=== PATIENT | female | born 2000 | race Caucasian/White ===

== ENCOUNTER → 2023-05-03 14:26 | Outpatient (REF) | payer BC, SELFPAY ==
[2023-05-13 12:01] LABS: Chlamydia trachomatis,ThinPrep Negative (Negative); Neisseria gonorrhoeae,ThinPrep Negative (Negative); Specimen Source Cervical
== END ==
LOC: CLAB 14:26
PROVIDERS: ATTENDING PHYSICIAN Nurse Practitioner Adult Health
DX: Z01.419 Encounter for gynecological examination (general) (routine) without abnormal findings (principal); Z11.3 Encounter for screening for infections with a predominantly sexual mode of transmission
CPT/HCPCS: 87491; 87591; G0123

== ENCOUNTER 2025-01-30 19:38 | Emergency (ER) | payer OTHER, SELFPAY ==
[2025-01-30 19:48] VITALS: BP 159/86
[2025-01-30 20:07] LABS: Hematocrit 40.4 % (37.0-47.0); Hemoglobin 13.8 g/dL (12.0-16.0); Mean Corp Hgb Conc. 34.2 g/dL (33.0-37.0); Mean Corpuscular Volume 86.3 fL (81.0-99.0); Nucleated Red Blood Cells % 0 %; Platelet Count 331 10^3/uL (130-400); Red Cell Dist. Width 12.7 % (11.5-14.5)
[2025-01-30 20:23] LABS: APTT 25.3 Sec (23.4-35.0)
[2025-01-30 20:35] LABS: HCG, Serum Qualitative Screen Negative
[2025-01-30 20:38] LABS: ALT (SGPT) 26 U/L (0-35); AST (SGOT) 28 U/L (14-36); Albumin 5.3 g/dl (3.5-5.0); Alkaline Phosphatase 60 U/L (38-126); Blood Urea Nitrogen 6 mg/dl (7-17); Calcium 10.2 mg/dl (8.4-10.2); Carbon Dioxide 23 mmol/L (22-30); Chloride 102 mmol/L (98-107); Glucose 108 mg/dl (70-99); Potassium 3.8 mmol/L (3.5-5.1); Sodium 134 mmol/L (135-145); Total Protein 8.6 g/dl (6.3-8.2); eGFR > 60.00
[2025-01-30 20:45] LABS: Troponin I < 0.012 ng/ml
[2025-01-30 21:11] VITALS: BP 137/93
--- NOTE | 2025-01-30 21:34 | ED.GENMED ---
History of Present Illness
General
Chief Complaint: Chest Pain
Source: patient and spouse
Exam Limitations: none
Time Seen by Provider: 01/30/25 21:13
Nursing documentation reviewed up to this point in time: agreed with
History of Present Illness
History of Present Illness:
Patient presents to ED secondary to intermittent chest pain, along with left arm tingling sensation over the past 5 days. Patient was evaluated by primary care physician 3 days ago secondary to left arm tingling sensation and was told that her
symptoms may be secondary to recent change in activities, i.e. recently purchased house with a lot of physical labor. However, when intermittent chest pain started over the past 2 days, she became worried and went to urgent care center. After
evaluation at urgent care center, patient was referred to ED for evaluation with concern for potential KS versus blood clots, patient is also on control pills and does vape. Denies leg pain or swelling. Denies back pain. Denies recent
travel or surgery. Denies family history of early heart disease or blood clots. Patient states that she has been under heavy stress recently and not eating as well. Chest pain described as sharp, intermittent, lasting seconds, with spontaneous
resolution.
Review of Systems
Review of Systems
Allergies reviewed?: Yes
All Other Systems: ROS reviewed and negative except as documented in HPI and ROS
Constitutional: Reports no symptoms
EENT: Reports no symptoms
Respiratory: Reports no symptoms
Cardiac: Reports chest pain
ABD/GI: Reports no symptoms
Musculoskeletal: Reports no symptoms
Skin: Reports no symptoms
Neurological: Reports numbness
Phy Exam
Physical Exam
Physical Exam:
Physical Exam
General: no apparent distress, not acutely ill. afebrile
Head: nc/at. eomi
Neck: supple. no meningeal signs.
Heart: s1/s2 regular rhythm, no murmur. tachycardic
Lungs: no acute respiratory distress. clear bilaterally
Abdomen: normal bowel sounds. not tender.
Neuro: alert and oriented x 3. no focal neurological deficits
Skin: no rash
Psychiatric: well kept. interactive and cooperative
Extremities: no edema. no calf tenderness.
Scores
Heart Score for Chest Pain Patients
STEMI patient?: No
History: Slightly or Non-Suspicious
ECG: Normal
Age: </= 45 years
Risk Factors: No Risk Factors
Troponin: </= Normal Limit
Heart Score for Chest Pain Patients: 0
Heart Score Risk: 2.5% MACE over next 6 weeks
Course
Orders/Labs/Results
Orders:
Orders
01/30/25 19:39
EKG [Electrocardiogram (*1)] Urgent
Reason for Study: Chest Pain
EKG- Treatment ONCE
01/30/25 19:53
Test Result ONCE
01/30/25 19:59
Complete Blood Count/With Diff Urgent
Comprehensive Metabolic Panel Urgent
HCG, Serum Qualitative Screen Urgent
PTT Urgent
Troponin I Urgent
01/30/25 21:27
D-Dimer Urgent
Abnormal Lab Results
01/30/25
19:59
Neutrophils % 79.5 H %
(42.2-75.2)
Lymphocytes % 17.3 L %
(20.5-51.1)
Sodium 134 L mmol/L
(135-145)
BUN 6 L mg/dl
(7-17)
Glucose 108 H mg/dl
(70-99)
Total Protein 8.6 H g/dl
(6.3-8.2)
Albumin 5.3 H g/dl
(3.5-5.0)
01/30/25 19:59
01/30/25 19:59
Vital Signs
Initial and Last Documented VS:
Initial Vital Signs
Temp Pulse Resp BP Pulse Ox
97.7 F 121 18 159/86 98
01/30/25 19:48 01/30/25 19:48 01/30/25 19:48 01/30/25 19:48 01/30/25 19:48
Last Documented Vital Signs
Temp Pulse Resp BP Pulse Ox
97.7 F 90 28 123/92 97
01/30/25 19:48 01/30/25 22:00 01/30/25 22:00 01/30/25 22:00 01/30/25 22:00
MDM/Problems Addressed
MDM/Problems Addressed:
Patient with an unremarkable workup in ED, including EKG, blood work. Patient's heart rate fluctuating between 90s and 110, with incremental increase noted during conversation. Patient's presenting symptoms less likely ACS nor PE, but likely
secondary to recent increase in stress. As such, patient will be discharged home with recommendation to follow-up with PCP for reevaluation, including potential treatment for underlying anxiety versus wearing Holter monitor, if palpitations persist.
At patient's request, short course of Xanax will be provided, to be used as needed with caution. However, did inform the patient, it is best that she speak with her primary care physician about potentially starting maintenance medications and
outpatient.
*Pulse Oximetry
SaO2: 98
Oxygen Mode of Delivery: Room air
Patient hypoxic: no
*EKG
Interpreted by ED Provider?: Yes
EKG Intrepretation Date: 01/30/25
Heart Rate: 114
Rate: bradycardiac
Rhythm: sinus
[place]: normal axis
Interval: normal interval
*Critical Care Note
Total Time (30-74mins, 75-104mins- exclusive of procedures): Not Applicable
ED Attending Note
-
Portions of this chart may have been created with voice recognition software.� Occasional wrong word or��sound alike� substitutions may have occurred due to the inherent limitations of voice recognition software.
Discharge Plan
Departure
Patient Disposition: Home (Routine Discharge)
Date of Disposition: 01/30/25
Time of Disposition: 21:54
Patient with high blood pressure during this ER visit?: Yes
Condition: Good
Discharge Problem:
Chest pain
Instructions: Chest Pain PCP Follow Up
Prescriptions:
New
alprazolam [Xanax] 0.5 mg tablet
0.5 mg PO TID PRN (Reason: anxiety) Qty: 5 0RF
No Action
norethindrone-e.estradiol-iron [Blisovi 24 Fe] 1 EACH tablet
1 ea PO DAILY
Activity Restrictions/Additional Instructions:
As discussed, please follow-up with your primary care physician for continual evaluation and treatment. Your prescription has been sent electronically to [facility] in [place].
Interventions
Interventions:
*Risk Screen - Suicide Last Done: 01/30/25 19:48
*General Assessment Last Done: 01/30/25 21:30
*Neglect/Abuse Screening Last Done: 01/30/25 21:30
*ED- Fall Risk Assessment Last Done: 01/30/25 21:30
*ED COVID-19 Vaccine History Last Done: 01/30/25 21:30
*ED Influenza Vaccine History Last Done: 01/30/25 21:30
*Nursing Disposition Last Done: 01/30/25 22:05
ED- Cardiac Assessment Last Done: 01/30/25 21:30
Discharge Date and Time
Discharge Date/Time: 01/30/25 22:05
Print Language: MACEDONIAN
[2025-01-30 21:49] LABS: D-Dimer 0.37 ug/mlFEU (0.00-0.50)
[2025-01-30 22:00] VITALS: BP 123/92
== END 2025-01-30 22:05 | disposition home or self-care (01) ==
LOC: EMR 19:38
PROVIDERS: EMERGENCY PHYSICIAN Emergency Medicine; FAMILY PHYSICIAN Internal Medicine
DX: R07.89 Other chest pain (principal)
CPT/HCPCS: 99283; 80053; 84484; 84703; 85025; 85379; 85730; 93005